=== PATIENT | male | born 1960 | race Two or more races ===

== ENCOUNTER 2016-07-30 23:23 | Emergency (ER) | payer OTHER ==
[~2016-07-30 23:23] MED LIST: CLARITIN10 MG PO; COLCRYS0.6 M2 PO; COUMADIN5 MG PO; INDOMETHACIN25 MG PO; LIPITOR40 MG PO; LISINOPRIL10 MG PO; METOPROLOL TAR25 MG PO; ZYLOPRIM PO
== END 2016-07-30 23:25 | disposition home or self-care (01) ==
LOC: CED 23:23
DX: M79.671 Pain in right foot (principal); M79.672 Pain in left foot; G89.29 Other chronic pain; M10.9 Gout, unspecified; E78.5 Hyperlipidemia, unspecified; I51.9 Heart disease, unspecified
CPT/HCPCS: 99283

== ENCOUNTER 2016-08-02 00:40 | Emergency (ER) | payer OTHER ==
--- NOTE | ~2016-08-02 | CR142 ---
[facility] A Service of [facility] RADIOLOGY TEXT RESULTS PATIENT: JUSTIN CAMACHO LOCATION: [facility] : 64 UNIT #: [id number] AGE: [address]: FREDERIC TOWNSEND APRN SEX: M ORDER DR: [id number] [facility]. [place], [place] [address] [id number] MR#: [id number] Acc #: [id number] NAME: JUSTIN CAMACHO : 1960 SEX: M STUDY DATE/TIME: 08/02/2016 1:16 UNIT: [facility] ROOM: STUDY DESCRIPTION: CR Hand Min 3 Views Rt Attending Physician: Frederic Townsend Aprn Ordering Physician: Frederic Townsend Aprn MEDICAL IMAGING REPORT This report is preliminary unless electronic signature is present EXAM Right hand, 3 views COMPARISON None. INDICATIONS 55-year-old male with redness at the third finger of the right digit for 3 days. No known injury. FINDINGS There is mild osteopenia. Chronic ossicles are seen adjacent to the pisiform and hamate. There is joint space narrowing and very bulky osteophyte formation at the third proximal interphalangeal joint. This is asymmetric as compared to other fingers where there is no appreciable degenerative change. No evidence of acute fracture or aggressive osseous destruction. Bones are anatomically aligned. No subcutaneous gas. There is marked soft tissue swelling at the third proximal interphalangeal joint. No subcutaneous gas or radiopaque foreign body. No evidence of osteomyelitis or osseous erosion. There is mild gull-wing deformity at the third proximal interphalangeal joint. IMPRESSION 1. No acute fracture, dislocation or aggressive osseous destruction. 2. Marked soft tissue swelling at the third proximal interphalangeal joint where there is marked bulky severe osteophyte formation and joint space narrowing. 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 3. No subcutaneous gas or radiopaque foreign body. Dictated by... [facility] A Service of [facility] RADIOLOGY TEXT RESULTS PATIENT: JUSTIN CAMACHO LOCATION: [facility] #: [id number] : 64 UNIT #: [id number] AGE: [address]: FREDERIC TOWNSEND APRN SEX: M ORDER DR: Ken Phelps M.D. THIS IS AN ELECTRONICALLY VERIFIED REPORT Ken Phelps M.D. at 08/06/2016 7:57 AM OLIVER/nieves TD: 08/02/2016 09:04 JOB #: [id number] MEDICAL IMAGING REPORT COPY
[2016-08-02 01:31] LABS: BASOPHIL# 0.1 X10e3 (0-0.3); BASOPHIL% 1.1 % (0-2.5); DIFF IND NO; EOSINOPHIL# 0.3 X10e3 (0-0.7); EOSINOPHIL% 3.2 % (0.0-7.0); HEMATOCRIT 41.9 % (38.0-50.0); HEMOGLOBIN 14.4 gm/dL (13.0-16.0); MEAN CELL VOLUME 85.5 FL (83-96); MEAN CORPUSCULAR HEMOGLOBIN 29.4 PG (28-34); MEAN CORPUSCULAR HGB CONC 34.3 g/dL (30-36); MEAN PLATELET VOLUME 8.3 FL (6.5-11.5); MONOCYTE# 0.8 X10e3 (0-1.0); MONOCYTE% 9.3 % (3.0-12.0); NEUTROPHIL# 5.6 X10e3 (1.5-7.1); NEUTROPHIL% 63.4 % (40-75); PLATELET COUNT 174 X10e3 (140-420); RED CELL DISTRIBUTION WIDTH 13.6 % (11.0-15.5); WHITE BLOOD COUNT 8.8 X10e3 (4.0-10.5)
[2016-08-02 01:43] LABS: INR 1.4; PROTHROMBIN TIME (PATIENT) 14.5 SECONDS (9.6-11.5)
[2016-08-02 01:52] LABS: BLOOD UREA NITROGEN 24 mg/dL (9-23); BUN/CREATININE RATIO 18.46; CALCIUM SERUM 8.3 mg/dL (8.4-10.2); CARBON DIOXIDE 29 mmol/L (22-31); CHLORIDE 102 mmol/L (100-111); CREATININE SERUM 1.3 mg/dL (0.6-1.4); GLOM FILT RATE Estimated ABOVE60 mL/min (>60); GLUCOSE FASTING 101 mg/dL (70-110); POTASSIUM 3.7 mmol/L (3.5-5.1); SODIUM 135 mmol/L (135-145); URIC ACID 7.7 mg/dL (2.6-7.2)
== END 2016-08-02 07:00 | disposition short-term general hospital (02) ==
LOC: CED 00:40
PROVIDERS: Nurse Practitioner Family
DX: M19.041 Primary osteoarthritis, right hand (principal); L03.011 Cellulitis of right finger; I10 Essential (primary) hypertension; I48.91 Unspecified atrial fibrillation
CPT/HCPCS: 36415; 73130; 80048; 84550; 85025; 85610; 85730; 87040; 96365; 96375; 99285; J2270

== ENCOUNTER 2016-08-05 14:03 | Emergency (ER) | payer OTHER | END 2016-08-05 14:10 | disposition home or self-care (01) | LOC: CFTX 14:03 | DX: M10.9 Gout, unspecified (principal); I48.91 Unspecified atrial fibrillation; Z98.890 Other specified postprocedural states | CPT/HCPCS: 99283 ==